=== PATIENT | female | born 1945 | race Hispanic/Latino ===

== ENCOUNTER 2020-05-23 05:16 | Outpatient (CLI) | payer OTHER ==
[2020-05-23 11:22] LABS: Prothrombin Time 12.8 sec (12.0-14.7)
[2020-05-23 11:27] LABS: #Basophils 0.1 thou/uL (0.0-0.2); #Eosinphils 0.2 thou/uL (0.0-0.7); #Lymphocytes 2.4 thou/uL (1.20-3.40); #Monocytes 0.5 thou/uL (0.11-0.59); #Neutrophils 3.7 thou/uL (1.40-6.50); %Basophils 0.9 % (0.0-1.0); %Eosinophils 2.4 % (0.0-10.0); %Lymphocytes 34.8 % (21.0-51.0); Hemoglobin 11.9 g/dL (12.0-16.0); Mean Corpuscular HGB CONC 32.5 g/dL (32.0-36.0); Mean Corpuscular Hemoglobin 27.6 pg (27.0-31.0); Mean Corpuscular Volume 84.9 fL (78.0-98.0); Platelet Count 187 thou/uL (130-400); RBC Distribution Width 12.2 % (11.5-14.5); Red Blood Cell (RBC) Count 4.29 mill/uL (4.20-5.40); White Blood Cell (WBC) Count 6.8 thou/uL (4.8-10.8)
[2020-05-23 11:53] LABS: Bacteria/HPF None Seen HPF (None Seen); Bilirubin Negative (Negative); Blood, Urine Negative (Negative); Clarity Clear (Clear); Glucose, Urine (Dipstick) Normal (Negative); Ketone, Urine Negative (Negative); Leukocyte Negative Leu/uL (Negative); Nitrite Negative (Negative); Protein, Urine (Dipstick) Negative (Neg-Trace); RBC/HPF 0-3 HPF (0-3); Specific Gravity, Urine 1.011 (1.002-1.036); Squamous Epithelial 0-3 HPF (0-3); Urobilinogen Normal mg/dL (Less than 2); WBC/HPF 0-3 HPF (0-3)
[2020-05-23 12:23] LABS: Anion Gap 14 mmol/L (10-20); BUN (Urea Nitrogen) 10 mg/dL (9.8-20.1); Calc. Creatinine Clearance 0 mL/min (70-130); Calcium 9.8 mg/dL (7.8-10.44); Carbon Dioxide 22 mmol/L (23-31); Chloride 105 mmol/L (98-107); Estimated GFR-MDRD 84; Glucose 178 mg/dL (83-110); Potassium 4.3 mmol/L (3.5-5.1); Sodium 137 mmol/L (136-145)
[2020-05-24 12:53] LABS: SARS-CoV-2 MS2 Positive; SARS-CoV-2 N Gene Negative; SARS-CoV-2 S Gene Negative; SARS-CoV-2 orf1ab Negative
== END 2020-05-23 05:17 | disposition home or self-care (01) ==
LOC: LABBT 05:16
PROVIDERS: ATTEND Orthopaedic Surgery
DX: Z01.812 Encounter for preprocedural laboratory examination (principal); Z11.59 Encounter for screening for other viral diseases; M17.31 Unilateral post-traumatic osteoarthritis, right knee
CPT/HCPCS: 80048; 81001; 85025; 85610; 87081; 87086; 87635; U0003

== ENCOUNTER 2020-05-23 09:30 | Inpatient (IN) | payer OTHER ==
[2020-05-21 12:26] VITALS: BMI 26.4
--- NOTE | 2020-05-23 09:02 | HP ---
HISTORY OF PRESENT ILLNESS: The patient is a 74-year-old female with a long history of progressive degenerative arthritis of both knees, right greater than left. Approximately 20 years ago, she had a benign tumor removed from the lateral aspect of her knee in [place]. It was that same year she sustained a fracture of the right femoral shaft, which was treated with a retrograde Synthes nail which was placed by Dr. Spencer. Fracture healed, but she has gradually developed progressive disabling arthritis which has persisted despite rest, restriction of activities and anti-inflammatory medications and previous cortisone injections. She also has significant degenerative arthritis of her left knee, but her right knee is bothering her much more. PAST MEDICAL HISTORY: As noted above. The patient also has history of hypertension and diabetes. CURRENT MEDICATIONS: Include: 1. Tramadol. 2. Escitalopram oxalate. 3. Glipizide. 4. Lipitor. 5. Hydrochlorothiazide. 6. Quinapril. ALLERGIES: SHE HAS NO KNOWN ALLERGIES. FAMILY HISTORY: Otherwise unremarkable. SOCIAL HISTORY: Otherwise unremarkable. REVIEW OF SYSTEMS: Otherwise unremarkable. PHYSICAL EXAMINATION: GENERAL: Healthy elderly female. HEENT: Unremarkable. NECK: Supple. CHEST: Clear. HEART: Regular rate and rhythm. ABDOMEN: Soft and nontender. PELVIC: Deferred. RECTAL: Deferred. BREASTS: Deferred. EXTREMITIES: Pertinent findings are related to her knees. She has venous varicosities bilaterally. There is [id number] varus deformity bilaterally. There is tenderness and crepitus over the medial joint bilaterally, right greater than left. On the right side, there is a healed lateral and healed medial parapatellar incision. Range of motion is 10 to 80 degrees instability. Neurovascular exam is intact. Pulses are 1+. Range of motion of the left knee is 5 to 105 degrees. DIAGNOSTIC STUDIES: X-rays of both knees and the right femur reveal [id number] collapse medially of both knees, right greater than left. There is a retrograde femoral nail on the right from the previous surgery with a healed femoral shaft fracture. The nail and the distal screws are too distal to allow placement of total knee component. IMPRESSION: 1. Posttraumatic degenerative arthritis, right knee. 2. Retained implant, right femur secondary to previous femur fracture. 3. Primary degenerative arthritis, left knee. 4. Type 2 diabetes. 5. Hypertension. PLAN: Removal of the retrograde nail from the right femur and right total knee replacement. The nature of the surgery, length of recovery, and potential complications such as infection, loss of motion, incomplete relief, delayed wound healing, neurovascular injury, thromboembolic phenomena, possible transfusion, need for revision have been discussed in detail with the patient and her family, may ultimately require left total knee replacement when she has recovered from the right. Job ID: [id number]
[2020-05-27] MEDS ORDERED: Vancomycin 1 GM/200 ML BAG ONE (06:22)
[2020-05-27] MEDS ORDERED: Sodium Chloride 0.9% 100 ML ONE (06:22)
[2020-05-27] MEDS ORDERED: Tranexamic Acid 1,000 MG/10 ML VIAL ONE ×2 (06:22→10:24)
[2020-05-27] MEDS ORDERED: Fentanyl 100 MCG/2 ML VIAL ONE ×3 (06:44→10:11)
[2020-05-27] MEDS ORDERED: Midazolam HCl 2 mg/2 ml Vial ONE (06:44)
[2020-05-27] MEDS ORDERED: Bupivacaine 0.25% HCL 30 ML VIAL ONE ×2 (07:13→07:55)
[2020-05-27] MEDS ORDERED: traMADol HCl 50 MG TAB PO PRN ×3 (07:15→12:25)
[2020-05-27] MEDS ORDERED: Hydrocerin (Eucerin) Cream 120 gm Jar TOP PRN (07:15)
[2020-05-27] MEDS ORDERED: Bupivacaine 0.25% 10 ML VIAL EPIDURAL PRN (07:15)
[2020-05-27] MEDS ORDERED: Zolpidem Tartrate 5 MG TAB PO PRN ×2 (07:15→12:25)
[2020-05-27] MEDS ORDERED: Promethazine HCl 25 MG/ML VIAL IM PRN ×2 (07:15→10:09)
[2020-05-27] MEDS ORDERED: diphenhydrAMINE 50 MG/ML VIAL IVP PRN (07:15)
[2020-05-27] MEDS ORDERED: Naloxone HCl 0.4 mg/ml Vial IVP PRN (07:15)
[2020-05-27] MEDS ORDERED: Naloxone HCl 0.4 mg/ml Vial IV PRN (07:15)
[2020-05-27] MEDS ORDERED: Promethazine HCl 25 MG SUPP PR PRN (07:15)
[2020-05-27] MEDS ORDERED: Ondansetron PF 4 MG/2 ML Vial IVP PRN ×2 (07:15→12:25)
[2020-05-27] MEDS ORDERED: diphenhydrAMINE 25 MG CAP PO PRN ×2 (07:15→12:25)
[2020-05-27] MEDS ORDERED: HYDROcodone/Acetaminophen 5/325 mg Tablet PO PRN (07:15)
[2020-05-27] MEDS ORDERED: diphenhydrAMINE 50 MG/ML VIAL IM PRN (07:15)
[2020-05-27] MEDS ORDERED: Lidocaine 1% w/Epinephrine 1:100K 20 ML VIAL ONE (07:38)
[2020-05-27] MEDS ORDERED: Promethazine HCl 25 MG/ML VIAL SLOW IVP PRN ×2 (10:09→12:25)
[2020-05-27] MEDS ORDERED: Ondansetron HCl/PF 4 MG/2 ML Vial IVP PRN (10:09)
[2020-05-27] MEDS ORDERED: Labetalol HCl 100 MG/20 ML VIAL ONE (10:09)
[2020-05-27] MEDS ORDERED: Tranexamic Acid 1,000 MG in Sodium Chloride 0.9% 100 ML IVPB SCH ×2 (10:15→12:25)
[2020-05-27] MEDS ORDERED: PROPOFOL 200 MG/20 ML VIAL ONE (11:21)
[2020-05-27] MEDS ORDERED: Lidocaine 1.5% w/Epi 1:200K 30 ML VIAL (Epid Use) ONE (11:21)
[2020-05-27] MEDS ORDERED: Ondansetron PF 4 MG/2 ML Vial ONE (11:21)
[2020-05-27] MEDS ORDERED: EPHEDRINE 25 MG/5 ML SYRINGE ONE (11:21)
[2020-05-27] MEDS ORDERED: Dexamethasone 20 MG/5 ML VIAL ONE (11:21)
[2020-05-27] MEDS ORDERED: Lidocaine 1% PF 5 ML VIAL ONE (11:21)
[2020-05-27] MEDS ORDERED: hydrALAZINE 20 MG/ML VIAL ONE (11:31)
--- NOTE | 2020-05-27 12:11 | RAD ---
RIGHT KNEE 2 VIEWS: Date: 05/27/2020 HISTORY: Postop total knee arthroplasty. FINDINGS/IMPRESSION: Recent total knee arthroplasty changes. No periprosthetic fracture, dislocation, or other acute proce ss. POS: RRE
[2020-05-27] MEDS ORDERED: Aspirin 81 mg Enteric Coated Tablet PO SCH ×2 (12:25→13:15)
[2020-05-27] MEDS ORDERED: HYDROcodone/Acetaminophen 10/325 mg Tablet PO PRN ×2 (12:25)
[2020-05-27] MEDS ORDERED: Acetaminophen 325 MG TAB PO PRN (12:25)
[2020-05-27] MEDS ORDERED: Ketorolac Tromethamine 30 MG/ML VIAL IVP PRN (12:25)
[2020-05-27] MEDS ORDERED: Atorvastatin Calcium 20 MG TAB PO SCH (12:25)
--- NOTE | 2020-05-27 12:41 | OP ---
DATE OF PROCEDURE: 05/27/2020 LASTING ROOM MACHINE OPERATOR: SHARRON Gomes. ANESTHESIA: General plus epidural. PREOPERATIVE DIAGNOSES: 1. Posttraumatic degenerative arthritis of right knee. 2. Retained deep implant in right femur (status post retrograde nailing of the femoral fracture with proximal and distal locking screws). PROCEDURES PERFORMED: 1. Right total knee replacement with computer-assisted navigation with [place] [employer] components (#2 femoral component, #3 primary tibial baseplate with 9 mm CS plastic insert and S27 all plastic patellar component). 2. Removal of deep implant, right femur (retrograde femoral nail with proximal and distal locking screws). DESCRIPTION OF PROCEDURE: After satisfactory anesthesia was induced in supine position, the patient was prepped and draped in routine manner. Attention was directed toward the proximal femur to take the locking screw out to be able to remove the intramedullary nail. A 3 cm incision was made over the previous incision, slightly extending this, carried down through the subcutaneous tissues. Bleeding points were controlled with Bovie cautery. Using sharp and blunt dissection, the proximal femur was exposed and the screw head found and subperiosteally dissected and removed with the screwdriver without too much difficulty. The wound was thoroughly irrigated. The subcutaneous tissues were closed with interrupted 2-0 Vicryl and the skin closed with staple gun. A sterile tourniquet was then placed on the proximal thigh. The right leg elevated, exsanguinated with an Esmarch bandage and the tourniquet inflated to 250 mmHg. A gently curved medial parapatellar incision was made incorporating a portion of the previous medial incision, carried down through subcutaneous tissues, bleeding points controlled with the Bovie cautery. Medial parapatellar arthrotomy was performed. There was abundant scar tissue and abundant metallosis. She only had approximately 50 degrees of flexion. Synovectomy was performed, and medial and lateral gutters opened up to allow flexion of the knee. Meniscal remnants and osteophytes were removed. There was marked degenerative arthritis of the knee with large areas of exposed bone. Using an osteotome and the intercondylar notch, the end of the intramedullary nail was identified. The two locking screws did have bone growth over the screw heads and this was removed with an osteotome. The proximal of the locking screws was removed with a screwdriver. The end cap of the intramedullary nail was then removed and then the distal locking screw was removed. This was done with some difficulty, but it was removed with the use of a screwdriver and also vice gold charmer. The extraction tool was then screwed into the end of the intramedullary nail, and using a slap hammer, the maeve was removed without too much difficulty. Total knee replacement was then proceeded. Using the GloNav pinless navigation system and the appropriate guides, the distal femoral and proximal tibial articular surfaces were excised with oscillating saw to accept the trial components. There was a large tibial cyst, which we curetted. It was felt that a #2 femoral component and #3 tibial base plate with 9 mm CS plastic insert give appropriate size, fit, and stability and correction of the preoperative deformity. The patellar articular surface was excised to accept all plastic S27 component. There was satisfactory motion, there was a tendency for patellar subluxation laterally and lateral retinacular release was performed with Bovie cautery and sharp dissection. This allowed a satisfactory patellar tracking and she had approximately 110 degrees of flexion. The trial components were removed. The knee was copiously irrigated with pulsatile lavage. The bony surfaces were thoroughly cleaned and dried. The permanent components were then cemented in a single stage using one pack of cement premixed with 1 g of tobramycin powder. The cysts in the proximal tibial were filled with cement, and prior to cement the intramedullary hole, the distal femur was filled with bone graft obtained from the bone cuts for the total knee. Excess cement was removed. There was good fit and stability of the components. The knee was copiously irrigated. The medial retinaculum and quadriceps mechanism were closed with interrupted #2 Vicryl and running #2 Quill. Subcutaneous tissues were infiltrated with mixture of 30 mL of 0.25% plain Marcaine and 30 mL of 1% lidocaine with epinephrine. The subcutaneous tissues were closed with running 0 Quill suture and the skin closed with running subcuticular 3-0 Monoderm and SurgiSeal skin adhesive. A sterile bulky compressive dressing was applied and the tourniquet deflated after 106 minutes. The foot promptly pinked up. Sequential compression device was applied to the operated leg. It was placed on the nonoperative leg throughout the procedure. She was awakened and taken to the recovery room in stable condition. There were no apparent intraoperative complications. The estimated blood loss was less than 100 mL. Les ID: [id number]
[2020-05-27] MEDS: Ketorolac Tromethamine 30 MG/ML VIAL IVP SCH ×3 (12:55→23:45)
[2020-05-27] MEDS: HYDROcodone/Acetaminophen 5/325 mg Tablet PO PRN ×2 (13:10→20:27)
[2020-05-27] MEDS ORDERED: metFORMIN 500 MG TAB PO SCH (13:45)
[2020-05-27] MEDS ORDERED: glipiZIDE 10 MG TAB PO SCH (13:45)
[2020-05-27] MEDS ORDERED: Hydrochlorothiazide 25 MG TAB PO SCH (13:45)
[2020-05-27] MEDS: Sodium Chloride 0.9% 1,000 ML IV SCH ×2 (14:58→23:46)
[2020-05-27] MEDS: CEFAZOLIN 2 GM in Premix Bag 1 BAG IVPB SCH ×2 (15:20→22:52)
[2020-05-27] MEDS ORDERED: Dextrose 50% Abboject 50 ML SYRINGE SLOW IVP PRN (16:43)
[2020-05-27] MEDS ORDERED: Dextrose 5% in Water 1,000 ML IV PRN (16:43)
[2020-05-27] MEDS ORDERED: HumaLOG 300 UNITS/3 ML VIAL SC SCH (16:45)
[2020-05-27] MEDS: glipiZIDE 10 MG TAB PO SCH (16:55)
[2020-05-27] MEDS: metFORMIN 500 MG TAB PO SCH (17:03)
--- NOTE | 2020-05-27 17:42 | HP ---
PRIMARY CARE PROVIDER: [facility]. CHIEF COMPLAINT: Management of medical comorbidities. HISTORY OF PRESENT ILLNESS: Ms. Tyra Iraheta is a pleasant 74-year-old lady, who was seen at [facility] on May 27, 2020. Earlier today, she underwent right total knee replacement with computer-assisted navigation and removal of deep implant in the right femur. Hospitalist Service has been requested to consult for medical management. The patient denies any chest pain or shortness of breath. She denies any fevers or chills. She reports mild pain in the right thigh and more severe pain over her right knee. She denies any abdominal pain. She reports nausea. She denies vomiting. REVIEW OF SYSTEMS: All systems were reviewed and found to be negative except for the pertinent positives mentioned above. PAST MEDICAL HISTORY: Arthritis, dyslipidemia, hypertension, and diabetes mellitus. PAST SURGICAL HISTORY: Surgery for right femoral fracture and right knee surgery x3. SOCIAL HISTORY: The patient denies tobacco use, alcohol use or recreational drug use. FAMILY HISTORY: No family history of premature coronary artery disease. ALLERGIES: NO KNOWN DRUG ALLERGIES. CURRENT MEDICATIONS: 1. Lipitor 20 mg daily. 2. Lexapro 20 mg at bedtime. 3. Glipizide 10 mg 2 times a day. 4. Hydrochlorothiazide 25 mg daily. 5. Metformin 500 mg 2 times a day. 6. Quinapril 10 mg at bedtime. 7. Naproxen p.r.n. PHYSICAL EXAMINATION: GENERAL: On examination, Ms. Tyra Iraheta is awake and alert, not in acute distress. VITAL SIGNS: Blood pressure 141/61, pulse 87, respiratory rate 20, and oxygen saturation 100% on room air. She is afebrile. EYES: No scleral icterus, no conjunctival pallor. ENT: Moist mucosal membranes. No oropharyngeal erythema or exudates. NECK: Supple, nontender, trachea is midline. RESPIRATORY: Accessory muscles of breathing are not active. Chest wall movements are symmetric bilaterally. Lungs are clear to auscultation without wheeze, rhonchi or crepitations. CARDIOVASCULAR: S1 and S2 are heard, regular. Peripheral pulses palpable. ABDOMEN: Soft, nontender, bowel sounds are heard. NEUROLOGIC: Cranial nerves 2 through 12 are intact. MUSCULOSKELETAL: Status post right hip and right knee surgery. SKIN: No rashes. LYMPHATIC: No cervical lymphadenopathy. PSYCHIATRIC: Normal mood, normal affect, the patient is oriented to person, place and time. LABORATORY DATA: Ms. Tyra Iraheta's labs and investigations were reviewed. On May 23, 2020, she had normal sodium, normal potassium, normal creatinine, and normal calcium. Urinalysis was normal. COVID-19 PCR test was negative on May 23, 2020. INR was 1.0 that day, and other than a mildly decreased hemoglobin of 11.9, her CBC was unremarkable. ASSESSMENT AND PLAN: Ms. Tyra Iraheta is a pleasant 74-year-old lady, who was seen at [facility] on May 27, 2020, for management of medical comorbidities. Her problem list includes: 1. Diabetes mellitus type 2: Her home medications will be continued. I will start her on Accu-Cheks and insulin sliding scale and adjust scale as needed. 2. Hypertension: Resume home medications, monitor vital signs, and titrate antihypertensives as needed. 3. Dyslipidemia: Continue statin. 4. Deep venous thrombosis prophylaxis and pain management per Orthopedic Surgery Service. Many thanks for allowing me to participate in your patient's care. Please feel free to contact me with any questions or concerns. LEVEL OF RISK: Moderate. LEVEL OF COMPLEXITY: Moderate. Job ID: [id number]
[2020-05-27] MEDS ORDERED: Vancomycin 1 GM in Premix Bag 1 BAG IVPB SCH (20:00)
[2020-05-27] MEDS: Lisinopril 10 MG TAB PO SCH (20:22)
[2020-05-27] MEDS: Aspirin 81 mg Enteric Coated Tablet PO SCH (20:22)
[2020-05-27] MEDS: Escitalopram Oxalate 20 mg Tablet PO SCH (20:25)
[2020-05-27] MEDS: HumaLOG 300 UNITS/3 ML VIAL SC PRN (20:59)
[2020-05-27] MEDS: fentaNYL Citrate/PF 500 MCG, Bupivacaine 10 ML in Sodium Chloride 0.9% 80 ML EPIDURAL SCH (23:44)
[2020-05-28] MEDS: Ketorolac Tromethamine 30 MG/ML VIAL IVP SCH ×4 (05:07→23:34)
[2020-05-28] MEDS: HYDROcodone/Acetaminophen 5/325 mg Tablet PO PRN ×2 (05:12→11:48)
[2020-05-28] MEDS: HumaLOG 300 UNITS/3 ML VIAL SC PRN ×5 (05:17→21:41)
[2020-05-28 06:36] LABS: Hemoglobin 8.9 g/dL (12.0-16.0); Mean Corpuscular HGB CONC 32.8 g/dL (32.0-36.0); Mean Corpuscular Hemoglobin 27.4 pg (27.0-31.0); Mean Corpuscular Volume 83.6 fL (78.0-98.0); Mean Platelet Volume 9.9 fL (7.4-10.4); Platelet Count 144 thou/uL (130-400); RBC Distribution Width 12.1 % (11.5-14.5); Red Blood Cell (RBC) Count 3.26 mill/uL (4.20-5.40)
[2020-05-28] MEDS: glipiZIDE 10 MG TAB PO SCH ×2 (07:38→17:30)
[2020-05-28] MEDS: Aspirin 81 mg Enteric Coated Tablet PO SCH ×2 (08:35→21:40)
[2020-05-28] MEDS: Atorvastatin Calcium 20 MG TAB PO SCH (08:36)
[2020-05-28] MEDS: metFORMIN 500 MG TAB PO SCH ×2 (08:36→17:39)
[2020-05-28] MEDS: Senokot S 8.6-50 MG TAB PO SCH ×2 (08:36→21:40)
[2020-05-28] MEDS: Multivitamin W/ Minerals 1 TAB PO SCH (08:36)
[2020-05-28] MEDS: Hydrochlorothiazide 25 MG TAB PO SCH (08:37)
[2020-05-28] MEDS: Sodium Chloride 0.9% 1,000 ML IV SCH ×2 (08:38→19:43)
[2020-05-28] MEDS ORDERED: Insulin Glargine 10 UNITS in Pre-Filled Syringe 1 EACH SC SCH (11:45)
[2020-05-28] MEDS: fentaNYL Citrate/PF 500 MCG, Bupivacaine 10 ML in Sodium Chloride 0.9% 80 ML EPIDURAL SCH (17:57)
--- NOTE | 2020-05-28 19:10 | PDOC.HOSPP ---
- Subjective Encounter Date: 05/28/20 Encounter Time: 13:20 Subjective: Pt seen for followup re: DM2. Feels better today. - Objective Vital Signs & Weight: Vital Signs (12 hours) Temp Pulse Resp BP Pulse Ox 05/28/20 15:33 99 F 94 14 147/61 H 93 L 05/28/20 11:27 99.8 F H 91 16 133/54 L 96 05/28/20 08:00 96 05/28/20 07:22 98.8 F 83 14 96/53 L 96 Weight Admit Weight 135 lb 4.752 oz Weight 135 lb I&O: 05/27/20 05/28/20 05/29/20 06:59 06:59 06:59 Intake Total 2370 Output Total 1125 Balance 1245 Result Diagrams: 05/28/20 05:41 Additional Labs: Accuchecks 05/28/20 05/28/20 05/28/20 15:35 13:18 11:18 POC Glucose 273 H 373 H 422 H 05/28/20 05/27/20 05:21 21:02 POC Glucose 221 H 375 H Labs and MARs reviewed by in Hospitalist ROS - Review of Systems Cardiovascular: denies: chest pain, palpitations, orthopnea, paroxysmal noc. dyspnea, edema, light headedness Gastrointestinal: denies: nausea, vomiting, abdominal pain, diarrhea, constipation, melena, hematochezia Musculoskeletal: reports: leg pain - Medication Medications: Active Medications Generic Name Dose Route Start Last Admin Trade Name Freq PRN Reason Stop Dose Admin Hydrocodone Bitart/Acetaminophen 2 tab 05/27/20 07:15 05/28/20 11:48 [place] 5/325 PO 2 tab Q4H PRN Administration For Moderate Pain 4-6 Aspirin 81 mg 05/27/20 21:00 05/28/20 08:35 Ecotrin PO 81 mg BID AMY Administration Atorvastatin Calcium 20 mg 05/28/20 09:00 05/28/20 08:36 Lipitor PO 20 mg DAILY AMY Administration Escitalopram Oxalate 20 mg 05/27/20 21:00 05/27/20 20:25 Lexapro PO 20 mg HS AMY Administration Glipizide 10 mg 05/27/20 16:30 05/28/20 17:30 Glucotrol PO 10 mg BID-AC AMY Administration Hydrochlorothiazide 25 mg 05/28/20 09:00 05/28/20 08:37 Hydrochlorothiazide PO Not Given DAILY AMY Fentanyl Citrate 500 mcg/ 100 mls @ 0 mls/hr 05/27/20 07:15 05/28/20 17:57 Bupivacaine HCl 10 ml/ Sodium EPIDURAL 100 mls Chloride INF AMY Administration As Directed Sodium Chloride 1,000 mls @ 100 mls/hr 05/27/20 12:25 05/28/20 08:38 Normal Saline 0.9% IV Not Given .Q10H AMY Insulin Human Lispro 0 units 05/28/20 11:33 05/28/20 17:30 Humalog SC 9 unit .AGGRESSIVE SLIDING PRN Administration Aggressive Correctional Scale Iron/Minerals/Multivitamins 1 tab 05/28/20 09:00 05/28/20 08:36 Theragran M PO 1 tab DAILY AMY Administration Ketorolac Tromethamine 15 mg 05/27/20 12:00 05/28/20 17:31 Toradol IVP 05/29/20 06:01 15 mg Q6HR AMY Administration Lisinopril 10 mg 05/27/20 21:00 05/27/20 20:22 Zestril PO 10 mg HS AMY Administration Metformin HCl 500 mg 05/27/20 17:00 05/28/20 17:39 Glucophage PO 500 mg BID-WM AMY Administration Promethazine HCl 12.5 mg 05/27/20 07:15 05/27/20 16:23 Phenergan IM 12.5 mg Q4H PRN Administration Nausea Senna/Docusate Sodium 2 tab 05/28/20 09:00 05/28/20 08:36 Senokot S PO 2 tab BID AMY Administration Sodium Chloride 10 ml 05/27/20 09:00 05/28/20 08:39 Flush - Normal Saline IVF 10 ml Q12HR AMY Administration - Exam General Appearance: awake alert Eye: anicteric sclera ENT: moist mucosa Neck: supple Heart: RRR Respiratory: CTAB Gastrointestinal: soft, non-tender Extremities - other findings: s/p R hip and knee surgery Psychiatric: normal affect, normal behavior Hosp A/P (1) DM2 (diabetes mellitus, type 2) Status: Chronic (2) HTN (hypertension) Code(s): I10 - ESSENTIAL (PRIMARY) HYPERTENSION Status: Chronic (3) Dyslipidemia Code(s): E78.5 - HYPERLIPIDEMIA, UNSPECIFIED Status: Chronic - Plan Start Lantus insulin HTN controlled. Continue statin
[2020-05-28] MEDS: Lisinopril 10 MG TAB PO SCH (21:40)
[2020-05-28] MEDS: Escitalopram Oxalate 20 mg Tablet PO SCH (21:40)
[2020-05-29] MEDS: Sodium Chloride 0.9% 1,000 ML IV SCH ×2 (04:50→09:18)
[2020-05-29 05:22] LABS: Hemoglobin 8.3 g/dL (12.0-16.0); Mean Corpuscular HGB CONC 32.1 g/dL (32.0-36.0); Mean Corpuscular Hemoglobin 27.1 pg (27.0-31.0); Mean Corpuscular Volume 84.4 fL (78.0-98.0); Mean Platelet Volume 9.9 fL (7.4-10.4); Platelet Count 128 thou/uL (130-400); RBC Distribution Width 11.9 % (11.5-14.5); Red Blood Cell (RBC) Count 3.05 mill/uL (4.20-5.40); White Blood Cell (WBC) Count 8.2 thou/uL (4.8-10.8)
[2020-05-29] MEDS: Ketorolac Tromethamine 30 MG/ML VIAL IVP SCH (06:27)
[2020-05-29] MEDS: HumaLOG 300 UNITS/3 ML VIAL SC PRN ×2 (06:29→11:45)
[2020-05-29] MEDS: glipiZIDE 10 MG TAB PO SCH (06:29)
[2020-05-29] MEDS: HYDROcodone/Acetaminophen 5/325 mg Tablet PO PRN (08:23)
[2020-05-29] MEDS: Atorvastatin Calcium 20 MG TAB PO SCH (08:25)
[2020-05-29] MEDS: metFORMIN 500 MG TAB PO SCH (08:25)
[2020-05-29] MEDS: Aspirin 81 mg Enteric Coated Tablet PO SCH (08:25)
[2020-05-29] MEDS: Multivitamin W/ Minerals 1 TAB PO SCH (08:25)
[2020-05-29] MEDS: Senokot S 8.6-50 MG TAB PO SCH (08:25)
[2020-05-29] MEDS: Hydrochlorothiazide 25 MG TAB PO SCH (08:26)
[2020-05-29] MEDS ORDERED: Insulin Glargine 10 UNITS in Pre-Filled Syringe 1 EACH SC SCH (09:00)
[2020-05-29 12:19] VITALS: BP 127/68; TEMP 98.1
== END 2020-05-29 14:30 | disposition home or self-care (01) | DRG 470 ==
LOC: SURG A 05-27 05:26 → SJJU 05-27 13:06
PROVIDERS: ADMIT Orthopaedic Surgery; ATTEND Orthopaedic Surgery
PROC: 0SRC0J9 Replacement of Right Knee Joint with Synthetic Substitute, Cemented, Open Approach (ICD-10-PCS; principal; 2020-05-27)
PROC: 0QPB04Z Removal of Internal Fixation Device from Right Lower Femur, Open Approach (ICD-10-PCS; 2020-05-27)
PROC: 8E0YXBZ Computer Assisted Procedure of Lower Extremity (ICD-10-PCS; 2020-05-27)
DX: M17.31 Unilateral post-traumatic osteoarthritis, right knee (principal); T84.89XA Other specified complication of internal orthopedic prosthetic devices, implants and grafts, initial encounter; Y83.8 Other surgical procedures as the cause of abnormal reaction of the patient, or of later complication, without mention of misadventure at the time of the procedure; I10 Essential (primary) hypertension; E78.5 Hyperlipidemia, unspecified; J30.2 Other seasonal allergic rhinitis; E11.9 Type 2 diabetes mellitus without complications; F32.9 Major depressive disorder, single episode, unspecified; Z79.4 Long term (current) use of insulin; Z79.899 Other long term (current) drug therapy
CPT/HCPCS: 36415; 36416; 85027; 93005; 93010; C1713; C1776; J0360; J0690; J1100; J1815; J1885; J2001; J2250; J2405; J2550; J2704; J3010; J3370; J3490; S0020

== ENCOUNTER 2020-09-01 23:06 | Emergency (ER) | payer OTHER, SELFPAY ==
[2020-09-01] MEDS ORDERED: Ondansetron PF 4 MG/2 ML Vial ONE (23:36)
[2020-09-01] MEDS ORDERED: Meclizine HCl 25 MG TAB ONE (23:54)
[2020-09-01 23:58] LABS: Bacteria/HPF None Seen HPF (None Seen); Bilirubin Negative (Negative); Blood, Urine Negative (Negative); Clarity Clear (Clear); Glucose, Urine (Dipstick) Normal (Negative); Ketone, Urine 40 mg/dL (Negative); Leukocyte 500 Leu/uL (Negative); Mucous/LPF 3+ LPF (<2+); Nitrite Negative (Negative); Protein, Urine (Dipstick) 30 mg/dL (Neg-Trace); RBC/HPF 0-3 HPF (0-3); Specific Gravity, Urine 1.024 (1.002-1.036); Squamous Epithelial 0-3 HPF (0-3); Urobilinogen Normal mg/dL (Less than 2); WBC/HPF Greater than 50 HPF (0-3)
--- NOTE | 2020-09-01 23:59 | CT ---
Head CT without contrast: 09/01/2020 COMPARISON: None HISTORY: Dizziness, nausea, vomiting TECHNIQUE: Axial CT imaging at 5 mm intervals from vertex through skull base without contrast FINDINGS: The imaged paranasal sinuses and mastoid air cells are well-aerated. No displaced calvarial fracture, intracranial hemorrhage, midline shift, or mass effect. IMPRESSION: No acute findings.
[2020-09-02 00:18] LABS: Hemoglobin 12.4 g/dL (12.0-16.0); Mean Corpuscular HGB CONC 33.9 g/dL (32.0-36.0); Mean Corpuscular Hemoglobin 26.5 pg (27.0-31.0); Mean Corpuscular Volume 78.4 fL (78.0-98.0); Mean Platelet Volume 10.1 fL (7.4-10.4); Platelet Count 203 thou/uL (130-400); RBC Distribution Width 14.5 % (11.5-14.5); Red Blood Cell (RBC) Count 4.68 mill/uL (4.20-5.40)
[2020-09-02 00:23] LABS: ALT (SGPT) 16 U/L (8-55); AST (SGOT) 18 U/L (5-34); Albumin 4.3 g/dL (3.4-4.8); Alkaline Phosphatase 94 U/L (40-110); Anion Gap 18 mmol/L (10-20); BUN (Urea Nitrogen) 26 mg/dL (9.8-20.1); Bilirubin, Total 0.4 mg/dL (0.2-1.2); Calc. Creatinine Clearance 0 mL/min (70-130); Calcium 9.3 mg/dL (7.8-10.44); Carbon Dioxide 20 mmol/L (23-31); Chloride 102 mmol/L (98-107); Estimated GFR-MDRD 71; Globulin 3.2 g/dL (2.4-3.5); Glucose 244 mg/dL (83-110); Lipase 244 U/L (8-78); Potassium 3.7 mmol/L (3.5-5.1); Protein, Total 7.5 g/dL (6.0-8.3); Sodium 136 mmol/L (136-145)
[2020-09-02 00:34] LABS: Band 22 % (5-11); Lymphocytes 3 % (21-51); MDiff Complete? YES; Metamyelocyte 1 % (0-0); Monocytes 13 % (0-10); Neutrophil 61 % (42-75); Platelet Morphology Comment Appears Adequate; RBC Morphology Normal
== END 2020-09-02 01:32 | disposition home or self-care (01) ==
LOC: ERS 23:06
DX: R42 Dizziness and giddiness (principal); E11.9 Type 2 diabetes mellitus without complications; I10 Essential (primary) hypertension; E78.5 Hyperlipidemia, unspecified; Z79.84 Long term (current) use of oral hypoglycemic drugs; Z79.899 Other long term (current) drug therapy
CPT/HCPCS: 36415; 70450; 80053; 81003; 81015; 83690; 85025; 93005; 96374; J2405